=== PATIENT | male | born 1970 | race American Indian/Alaskan Native ===

== ENCOUNTER 2020-03-18 10:18 | Emergency (ER) | payer MEDICAID ==
[2020-03-18 10:27] VITALS: BP 147/89
--- NOTE | 2020-03-18 12:02 | Emergency Department Report ---
ED General Adult HPI - General Chief complaint: Skin/Abscess/Foreign Body Stated complaint: LEG/FEET PAIN Time Seen by Provider: 03/18/20 11:49 Source: patient Mode of arrival: Ambulatory Limitations: No Limitations - History of Present Illness Initial comments: 49-year-old -[place] male presents with complaints of right groin abscess x1 week. Patient rates his pain as 8/10 in severity and denies any fever/chills/sweats or surrounding redness. He reports he was seen by his PCP and referred to the ED for incision and drainage. Patient has history of kidney disease and liver failure - Related Data Previous Rx's Medication Instructions Recorded Last Taken Type Amoxicillin [Amoxicillin TAB] 875 mg PO BID #20 tablet 10/18/19 Unknown Rx Ketorolac [Toradol] 10 mg PO Q6H PRN #15 tablet 10/18/19 Unknown Rx methOCARBAMOL [Robaxin TAB] 750 mg PO Q8H PRN #14 tablet 10/18/19 Unknown Rx traMADoL [Ultram] 50 mg PO Q6HR PRN #14 tablet 10/18/19 Unknown Rx Doxycycline Monohydrate 100 mg PO BID 10 Days #20 capsule 03/18/20 Unknown Rx Gabapentin 300 mg PO TID #90 capsule 03/18/20 Unknown Rx Allergies Allergy/AdvReac Type Severity Reaction Status Date / Time No Known Allergies Allergy Unverified 10/18/19 16:10 ED Review of Systems ROS: Stated complaint: LEG/FEET PAIN Other details as noted in HPI Constitutional: denies: chills, diaphoresis, fever, malaise Cardiovascular: denies: chest pain Gastrointestinal: denies: nausea, vomiting Skin: lesions Neurological: denies: paresthesias ED Past Medical Hx - Past Medical History Previous Medical History?: Yes Hx Hypertension: Yes Hx Diabetes: Yes Hx Liver Disease: Yes (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 IN [place] [facility]) Hx Renal Disease: Yes (HX OF DIALYSIS) Additional medical history: NEUROPATHY, PANCREATITIS, ESOPHAGEAL VARICIES - Surgical History Past Surgical History?: Yes Additional Surgical History: L ARM FISTULA, PARACENTESIS - Social History Smoking Status: Never Smoker Substance Use Type: None - Medications Home Medications: Home Medications Medication Instructions Recorded Confirmed Last Taken Type Amoxicillin [Amoxicillin TAB] 875 mg PO BID #20 tablet 10/18/19 Unknown Rx Ketorolac [Toradol] 10 mg PO Q6H PRN #15 tablet 10/18/19 Unknown Rx methOCARBAMOL [Robaxin TAB] 750 mg PO Q8H PRN #14 tablet 10/18/19 Unknown Rx traMADoL [Ultram] 50 mg PO Q6HR PRN #14 tablet 10/18/19 Unknown Rx Doxycycline Monohydrate 100 mg PO BID 10 Days #20 capsule 03/18/20 Unknown Rx Gabapentin 300 mg PO TID #90 capsule 03/18/20 Unknown Rx ED Physical Exam - General Limitations: No Limitations General appearance: alert, in no apparent distress - Head Head exam: Present: atraumatic, normocephalic - Eye Eye exam: Present: normal appearance - Respiratory Respiratory exam: Absent: respiratory distress - Cardiovascular Cardiovascular Exam: Present: regular rate - Back Exam Back exam: Present: normal inspection - Neurological Exam Neurological exam: Present: alert, oriented X3 - Psychiatric Psychiatric exam: Present: normal affect, normal mood - Skin Skin exam: Present: warm, dry, intact, other (3 cm raised abscess noted to right groin without surrounding cellulitis or erythema). Absent: rash ED Course Vital Signs 03/18/20 10:24 Temperature 97.6 F Pulse Rate 79 Respiratory 20 Rate Blood Pressure 147/89 O2 Sat by Pulse 100 Oximetry - I & D Groin Type of Procedure: Simple Site: Right groin Blade Size: 11 I & D Procedure: betadine prep, sterile drapes applied, sterile dressing applied Progress: 3 cc of lidocaine 1% with epi used. Minimal bleeding occurred. Moderate purulent drainage was noted from wound along with pieces of sebaceous cyst wall. Patient tolerated procedure well without any immediate complications ED Medical Decision Making - Medical Decision Making 49-year-old -[place] male presents with complaints of right groin abs cess x1 week. Patient rates his pain as 8/10 in severity and denies any fever/chills/sweats or surrounding redness. He reports he was seen by his PCP and referred to the ED for incision and drainage. Patient has history of kidney disease and liver failure Incision and drainage performed. Patient tolerated procedure well without any immediate complications. Wound culture sent. Prescription for doxycycline given. Wound care and strict return precautions were discussed in detail with patient who verbalizes understanding. Patient to follow-up with his PCP in 2 days for a recheck of abscess. Critical care attestation.: If time is entered above; I have spent that time in minutes in the direct care of this critically ill patient, excluding procedure time. ED Disposition Clinical Impression: Abscess, Infected sebaceous cyst Disposition: TO HOME OR SELFCARE Is pt being admited?: No Condition: Stable Instructions: Epidermal Cyst, Incision and Drainage Prescriptions: Doxycycline Monohydrate 100 mg PO BID 10 Days #20 capsule Gabapentin 300 mg PO TID #90 capsule Referrals: PRIMARY CARE, [Primary Care Provider] - 03/20/20 (Recheck of abscess)
== END 2020-03-18 13:34 | disposition home or self-care (01) ==
LOC: ED 10:18
DX: L02.214 Cutaneous abscess of groin (principal); L72.3 Sebaceous cyst; I10 Essential (primary) hypertension; E11.9 Type 2 diabetes mellitus without complications; Z98.890 Other specified postprocedural states; Z79.899 Other long term (current) drug therapy
CPT/HCPCS: 87116

== ENCOUNTER 2020-11-29 02:58 | Emergency (ER) | payer MEDICAID ==
[2020-11-29 05:07] VITALS: BP 135/100
[2020-11-29 06:23] LABS: Basophils # (Auto) 0.1 K/mm3 (0.0-0.1); Basophils % (Auto) 1.2 % (0.0-1.8); Eosinophils # (Auto) 0.1 K/mm3 (0.0-0.4); Eosinophils % (Auto) 2.7 % (0.0-4.3); Hematocrit 38.5 % (35.5-45.6); Lymphocytes # (Auto) 1.6 K/mm3 (1.2-5.4); Lymphocytes % (Auto) 34.5 % (13.4-35.0); Mean Corpuscular HGB Conc 34 % (32-34); Mean Corpuscular Volume 96 fl (84-94); Monocytes # (Auto) 0.5 K/mm3 (0.0-0.8); Monocytes % (Auto) 11.8 % (0.0-7.3); Platelet Count 192 K/mm3 (140-440); Red Cell Distribution Width 13.6 % (13.2-15.2)
[2020-11-29 06:45] LABS: Alanine Aminotransferase 157 units/L (7-56); Albumin 5.2 g/dL (3.9-5); BUN/Creatinine Ratio 6; Blood Urea Nitrogen 12 mg/dL (9-20); Calcium 9.4 mg/dL (8.4-10.2); Hemolysis Index 104
--- NOTE | 2020-11-29 11:15 | Electrocardiograph Report ---
[facility] Test Date: 2020-11-29 Test Time: 05:13:20 Pat Name: PAPO CASTRO Department: Room: Gender: [place] [employer] Operator: LESLIE : 1970 Requested By: ED DOC Order Number: [id number] Reading MD: Jan Alcala Measurements Intervals [place] Rate: 71 P: 90 TN: 155 QRS: 26 QRSD: 99 T: 22 QT: 439 QTc: 479 Interpretive Statements Sinus rhythm No previous ECG available for comparison Electronically Signed On 11-29-2020 11:15:00 EDT by Jan Alcala
[2020-11-29 11:20] LABS: INR 1.31 (0.87-1.13)
--- NOTE | 2020-11-30 06:58 | XRay Report ---
CHEST 2 VIEWS INDICATION / CLINICAL INFORMATION: Chest pain and SOB. COMPARISON: None available. FINDINGS: SUPPORT DEVICES: None. HEART / MEDIASTINUM: No significant abnormality. LUNGS / PLEURA: No significant pulmonary or pleural abnormality. No pneumothorax. ADDITIONAL FINDINGS: No significant additional findings. IMPRESSION: 1. No acute findings. Signer Name: Zahira Redd MD Signed: 11/30/2020 6:53 AM Workstation Name: [id number]
== END 2020-11-29 21:31 | disposition left against medical advice (07) ==
LOC: ED 02:58
DX: M79.673 Pain in unspecified foot (principal); Z53.21 Procedure and treatment not carried out due to patient leaving prior to being seen by health care provider
CPT/HCPCS: 36415; 71046; 80053; 82150; 83690; 83735; 84100; 84484; 85025; 85610; 93005